=== PATIENT | female | born 1950 | race Caucasian/White ===

== ENCOUNTER 2016-07-10 13:52 | Outpatient (CLI) | payer MEDICARE, BC ==
[~2016-07-10] VITALS: Ht 167.6 cm; Wt 84.0 kg
[~2016-07-10 13:52] MED LIST: DULERA1 AR1 IH; FOLIC ACID 11 MG/TA1 PO; HYZAAR 12.5 MG-1 TAB PO; INDERAL LA 60MG60 MG PO; METHOTREXA2.5 MG/TAB PO; PRILOSEC 20MG20 MG PO; SIMPONIARIA IV; ULTRAM 50MG TAB50 MG PO; ZOFRAN8 MG PO
[2016-07-10] MEDS ORDERED: PREDNISONE20 MG PO (14:03)
[2016-07-10 14:20] VITALS: BP 118/64; PULSE 72; TEMP 97.5
== END 2016-07-10 17:36 | disposition home or self-care (01) ==
LOC: EUO 13:52
DX: M06.89 Other specified rheumatoid arthritis, multiple sites (principal)
CPT/HCPCS: J1602

== ENCOUNTER → 2016-07-22 | Outpatient (CLI) | payer MEDICARE, BC ==
[~2016-07-22] MED LIST changes: +PREDNISONE20 MG PO
== END ==
LOC: MC.RAD 13:20
DX: Z12.31 Encounter for screening mammogram for malignant neoplasm of breast (principal)

== ENCOUNTER 2016-09-04 13:54 | Outpatient (CLI) | payer MEDICARE, BC ==
[~2016-09-04] VITALS: Ht 167.6 cm; Wt 82.3 kg
[2016-09-04 14:31] VITALS: BP 113/67; PULSE 76; TEMP 97.5
== END 2016-09-04 16:28 | disposition home or self-care (01) ==
LOC: EUO 13:54
DX: M06.89 Other specified rheumatoid arthritis, multiple sites (principal)
CPT/HCPCS: J1602

== ENCOUNTER 2016-11-06 13:41 | Outpatient (CLI) | payer MEDICARE, BC ==
[~2016-11-06] VITALS: Ht 167.6 cm; Wt 81.0 kg
[2016-11-06 14:25] VITALS: BP 104/58; PULSE 68; TEMP 97.8
== END 2016-11-06 15:18 | disposition home or self-care (01) ==
LOC: EUO 13:41
DX: M06.89 Other specified rheumatoid arthritis, multiple sites (principal)
CPT/HCPCS: J1602

== ENCOUNTER 2017-01-01 14:03 | Outpatient (CLI) | payer MEDICARE, BC ==
[~2017-01-01] VITALS: Ht 167.6 cm; Wt 80.0 kg
[2017-01-01 16:19] VITALS: BP 113/66; PULSE 71; TEMP 96.7
== END 2017-01-01 21:00 | disposition home or self-care (01) ==
LOC: EUO 14:03
DX: M06.89 Other specified rheumatoid arthritis, multiple sites (principal)
CPT/HCPCS: J1602

== ENCOUNTER 2017-02-26 13:41 | Outpatient (CLI) | payer MEDICARE, BC ==
[~2017-02-26] VITALS: Ht 167.6 cm; Wt 80.5 kg
[2017-02-26 14:35] VITALS: BP 119/56; PULSE 67; TEMP 97.4
== END 2017-02-26 15:09 | disposition home or self-care (01) ==
LOC: EUO 13:41
DX: M06.9 Rheumatoid arthritis, unspecified (principal); Z79.899 Other long term (current) drug therapy
CPT/HCPCS: J1602

== ENCOUNTER → 2017-10-14 | Outpatient (CLI) | payer MEDICARE, BC | LOC: MC.RAD 13:08 | DX: Z12.31 Encounter for screening mammogram for malignant neoplasm of breast (principal); Z98.890 Other specified postprocedural states ==

== ENCOUNTER → 2020-01-26 | Outpatient (CLI) | payer MEDICARE, BC ==
[~2020-01-26] MED LIST changes: +CIPRO 500MG TA500 MG PO; +FLAGYL500 MG PO
== END ==
LOC: MC.RAD 10:34
DX: Z12.31 Encounter for screening mammogram for malignant neoplasm of breast (principal)

== ENCOUNTER 2020-05-03 09:18 | Emergency (ER) | payer MEDICARE, BC ==
[~2020-05-03] VITALS: Ht 167.6 cm; Wt 79.5 kg
[~2020-05-03 09:18] MED LIST changes: +OMNICEF 300MG300 MG PO
[2020-05-03 09:52] VITALS: TEMP 96.7
[2020-05-03] MEDS ORDERED: DOXYCYCLINE 10100 MG PO (11:29)
[2020-05-03 12:00] VITALS: BP 132/75; PULSE 78
== END 2020-05-03 12:00 | disposition home or self-care (01) ==
LOC: COL.ER 09:18
DX: U07.1 COVID-19 (principal); J01.90 Acute sinusitis, unspecified; Z88.2 Allergy status to sulfonamides

== ENCOUNTER → 2021-03-29 | Outpatient (CLI) | payer MEDICARE, BC ==
[~2021-03-29] MED LIST changes: +DOXYCYCLINE 10100 MG PO
== END ==
LOC: MC.RAD 15:15
DX: Z12.31 Encounter for screening mammogram for malignant neoplasm of breast (principal); Z98.890 Other specified postprocedural states

== ENCOUNTER → 2022-12-06 | Outpatient (CLI) | payer MEDICARE, BC ==
[~2022-12-06] MED LIST changes: +Gadoterate 20 ML VIAL IV ONE
== END ==
LOC: COL.RAD 09:56
DX: G31.84 Mild cognitive impairment of uncertain or unknown etiology (principal)
CPT/HCPCS: A9575

== ENCOUNTER → 2023-04-02 | Outpatient (CLI) | payer MEDICARE, BC ==
[~2023-04-02] MED LIST changes: -Gadoterate 20 ML VIAL IV ONE
== END ==
LOC: CANSCHCLI → COL.RAD 10:50 → MC.RAD 10:50 → COL.RAD 11:00
DX: Z12.31 Encounter for screening mammogram for malignant neoplasm of breast (principal)

== ENCOUNTER 2023-11-03 15:19 | Emergency (ER) | payer MEDICARE, BC ==
[~2023-11-03] VITALS: Ht 165.1 cm; Wt 85.0 kg
[2023-11-03 15:35] VITALS: TEMP 97.8
[2023-11-03] MEDS ORDERED: NS 1,000 ML IV ONE (15:45)
[2023-11-03 16:02] LABS: BASO # 0.1 K/mm3 (0.0-0.2); BASO % 0.5 % (0.0-2.0); EOS # 0.2 K/mm3 (0.0-0.7); EOS % 1.5 % (0.0-4.0); GRAN # 9.2 K/mm3 (1.4-6.5); GRAN % 70.5 % (42.2-75.2); HEMATOCRIT 42.1 % (37.0-47.0); HEMOGLOBIN 14.3 g/dl (12.5-16.0); LYMPH # 2.5 K/mm3 (1.2-3.4); LYMPH % 19.3 % (20.0-51.0); MEAN CELL VOLUME 94 fl (80.0-100.0); MEAN CORPUSCULAR HEMOGLOBIN 32 pg (27-31); MEAN CORPUSCULAR HGB CONC 34 g/dl (33.0-37.0); MEAN PLATELET VOLUME 9.8 fl (7.4-10.4); MONO % 7.9 % (1.7-9.3); PLATELET COUNT 329 K/mm3 (130-400); RED BLOOD COUNT 4.48 M/mm3 (4.10-5.30); REDCELL DISTRIBUTION WIDTH-CV 13.6 % (11.5-14.5)
[2023-11-03 16:21] LABS: ALBUMIN 3.3 g/dL (3.4-4.8); BILIRUBIN,TOTAL 0.2 mg/dL (0.2-1.2); CALCIUM 10.1 mg/dL (8.4-10.2); CREATININE, serum 0.84 mg/dL (0.57-1.11); POTASSIUM 3.9 mEq/L (3.5-4.5); TOTAL PROTEIN 7.7 g/dl (6.2-8.1)
[2023-11-03] MEDS ORDERED: Iohexol 300 - 100 ML VIAL IV ONE (17:15)
[2023-11-03] MEDS ORDERED: NS 100 ML IV SCH (17:16)
[2023-11-03 17:22] LABS: COLLECTION METHOD CLEAN CATCH
[2023-11-03 17:29] LABS: PH 5.5 (5.0-8.5); URINE APPEARANCE CLEAR (CLEAR/HAZY); URINE BLOOD TRACE (NEGATIVE); URINE COLOR YELLOW (YELLOW); URINE GLUCOSE NEGATIVE (NEGATIVE); URINE KETONE NEGATIVE (NEGATIVE); URINE NITRATE NEGATIVE (NEGATIVE); URINE PROTEIN(semi-quant) NEGATIVE (NEGATIVE); URINE UROBILINOGEN 0.2 E.U/dL (0.2-1.0)
[2023-11-03 18:20] VITALS: BP 133/61; PULSE 78
== END 2023-11-03 18:20 | disposition home or self-care (01) ==
LOC: COL.ER 15:19
PROVIDERS: Physician Assistant
DX: K57.92 Diverticulitis of intestine, part unspecified, without perforation or abscess without bleeding (principal)
CPT/HCPCS: J7030; Q9967